=== PATIENT | male | born 1945 | race Caucasian/White ===

== ENCOUNTER 2017-09-03 20:06 | Inpatient (IN) | payer MEDICARE, BC ==
--- NOTE | 2017-09-03 20:33 | EDM.PDOC ---
ED HPI GENERAL MEDICAL PROBLEM - General Chief Complaint: Chest Pain Stated Complaint: CHEST PAIN Time Seen by Provider: 09/03/17 20:15 Source of Information: Reports: Patient, Family History Limitations: Reports: No Limitations - History of Present Illness INITIAL COMMENTS - FREE TEXT/NARRATIVE: Lucero comes into [facility] ED with sxs of R anterior chest pain, characterized as sharp and deep. Pain began early this am and was mild, not associated with palpitations, sweats, SOB, nausea, or lt headiness. Sxs seemed to linger during the day, subsided at dinner time, and then relapsed about 90 minutes ago. Pain is currently an 8/10. He is concerned about PE, having experienced a PE in 2010 after knee surgery. He more recently had podiatric surgery to the R foot on August 16. He has tried no meds. Right Chest Pain Score (Numeric/FACES): 5 - Related Data Allergies Allergy/AdvReac Type Severity Reaction Status Date / Time No Known Allergies Allergy Verified 09/03/17 20:55 Home Meds: Home Meds Aspirin [Adult Low Dose Aspirin EC] 81 mg PO DAILY 12/13/12 [History] Past Medical History Cardiovascular History: Reports: Blood Clots/VTE/DVT Respiratory History: Reports: PE ED ROS GENERAL - Review of Systems Review Of Systems: See Below Constitutional: Reports: Malaise HEENT: Reports: No Symptoms Cardiovascular: Reports: Chest Pain, Palpitations GI/Abdominal: Reports: No Symptoms : Reports: No Symptoms Musculoskeletal: Reports: Foot Pain (R foot recovering from podiatric surgery) Skin: Reports: No Symptoms Neurological: Reports: No Symptoms Psychiatric: Reports: No Symptoms Hematologic/Lymphatic: Reports: No Symptoms Immunologic: Reports: No Symptoms ED EXAM, GENERAL - Physical Exam Exam: See Below Exam Limited By: No Limitations General Appearance: Alert, WD/WN, Anxious, Mild Distress Eye Exam: Bilateral Eye: EOMI, Normal Inspection, PERRL Ears: Normal External Exam Nose: Normal Inspection Throat/Mouth: Normal Inspection, Normal Oropharynx Head: Normocephalic Neck: Normal Inspection, Supple, Non-Tender Respiratory/Chest: No Respiratory Distress, Lungs Clear, No Accessory Muscle Use , Other (limited chest tenderness T 4, 5,6 on R costochondral junction; no swelling) Cardiovascular: Normal Peripheral Pulses, No Edema, No Gallop, No Murmur, Tachycardia GI/Abdominal: Normal Bowel Sounds, Soft, Non-Tender, No Organomegaly, No Distention, No Mass (Male) Exam: Deferred Rectal (Males) Exam: Deferred Back Exam: Normal Inspection Extremities: Normal Inspection Neurological: Alert, Oriented, CN II-XII Intact, Normal Cognition, No Motor/ Sensory Deficits Psychiatric: Normal Affect, Anxious Skin Exam: Warm, Dry, Intact, Normal Color Lymphatic: No Adenopathy Course - Vital Signs Text/Narrative:: Following assessment at the [facility] ED, an 12 lead ekg was reviewed, noting sinus tachycardia; an IV was started in the LUE, and 1L of NS administered with Dilaudid 2 mg IV. A chest angio noted: bilateral PE, more prominent on the R side, with additional findings of ground glass affecting both lower lobes, clinical correlation suggested. The d-dimer 3.79, Troponin I <0.017, CBC and CMP baseline. He will be admitted for medical management. Last Recorded V/S: Last Vital Signs Temp 37.2 C 09/03/17 20:06 Pulse 93 09/03/17 21:16 Resp 22 H 09/03/17 21:16 BP 170/75 H 09/03/17 21:16 Pulse Ox 94 L 09/03/17 21:16 - Orders/Labs/Meds Orders: Active Orders 24 hr Category Date Time Status EKG Documentation Completion [RC] ASDIRECTED Care 09/03/17 20:31 Active Ang Chest [CT] Stat Exams 09/03/17 20:30 Taken Sodium Chloride 0.9% [Normal Saline] 1,000 ml Med 09/03/17 20:45 Active IV ASDIRECTED Sodium Chloride 0.9% [Saline Flush] Med 09/03/17 20:30 Active 10 ml FLUSH ASDIRECTED PRN Peripheral IV Insertion Adult [OM.PC] Routine Oth 09/03/17 20:30 Ordered EKG 12 Lead [EK] Routine Ther 09/03/17 20:30 Ordered Medication Orders Sodium Chloride (Normal Saline) 1,000 mls @ 250 mls/hr IV ASDIRECTED GENEVIEVE Last Admin: 09/03/17 20:49 Dose: 250 mls/hr Sodium Chloride (Saline Flush) 10 ml FLUSH ASDIRECTED PRN PRN Reason: Keep Vein Open Last Admin: 09/03/17 20:49 Dose: 10 ml Admin: 09/03/17 20:35 Dose: 10 ml Labs: Laboratory Tests 09/03/17 09/03/17 09/03/17 Range/Units 20:55 20:55 20:55 WBC 6.9 (4.5-12.0) X10-3/uL RBC 5.00 (4.30-5.75) x10(6)uL Hgb 14.0 (11.5-15.5) g/dL Hct 41.6 (30.0-51.3) % MCV 83.3 (80-96) fL MCH 28.0 (27.7-33.6) pg MCHC 33.6 (32.2-35.4) g/dL RDW 13.4 (11.5-15.5) % Plt Count 213 (125-369) X10(3)uL MPV 6.9 L (7.4-10.4) fL Neut % (Auto) 68.0 (46-82) % Lymph % (Auto) 22.3 (13-37) % [place] % (Auto) 7.4 (4-12) % Eos % (Auto) 2 (1.0-5.0) % Baso % (Auto) 0 (0-2) % Neut # (Auto) 4.8 (1.6-8.3) # Lymph # (Auto) 1.5 (0.6-5.0) # [place] # (Auto) 0.5 (0.0-1.3) # Eos # (Auto) 0.1 (0.0-0.8) # Baso # (Auto) 0.0 (0.0-0.2) # D-Dimer, Quantitative 3.79 H (0.0-0.59) mg/LFEU Sodium 138 (135-145) mmol/L Potassium 3.9 (3.5-5.3) mmol/L Chloride 99 L (100-110) mmol/L Carbon Dioxide 33 H (21-32) mmol/L BUN 19 H (7-18) mg/dL Creatinine 1.3 (0.70-1.30) mg/dL Est Cr Clr Drug Dosing TNP Estimated GFR (MDRD) 54 L (>60) BUN/Creatinine Ratio 14.6 (9-20) Glucose 184 H (80-116) mg/dL Calcium 9.1 (8.6-10.2) mg/dL Total Bilirubin 0.7 (0.1-1.3) mg/dL AST 12 (5-25) IU/L ALT 20 (12-36) U/L Alkaline Phosphatase 76 (56-112) IU/L Troponin I (<0.017-0.056) ng/mL Total Protein 7.3 (6.0-8.0) g/dL Albumin 3.6 (3.2-4.6) g/dL Globulin 3.7 g/dL Albumin/Globulin Ratio 1.0 / Range/Units 20:55 WBC (4.5-12.0) X10-3/uL RBC (4.30-5.75) x10(6)uL Hgb (11.5-15.5) g/dL Hct (30.0-51.3) % MCV (80-96) fL MCH (27.7-33.6) pg MCHC (32.2-35.4) g/dL RDW (11.5-15.5) % Plt Count (125-369) X10(3)uL MPV (7.4-10.4) fL Neut % (Auto) (46-82) % Lymph % (Auto) (13-37) % [place] % (Auto) (4-12) % Eos % (Auto) (1.0-5.0) % Baso % (Auto) (0-2) % Neut # (Auto) (1.6-8.3) # Lymph # (Auto) (0.6-5.0) # [place] # (Auto) (0.0-1.3) # Eos # (Auto) (0.0-0.8) # Baso # (Auto) (0.0-0.2) # D-Dimer, Quantitative (0.0-0.59) mg/LFEU Sodium (135-145) mmol/L Potassium (3.5-5.3) mmol/L Chloride (100-110) mmol/L Carbon Dioxide (21-32) mmol/L BUN (7-18) mg/dL Creatinine (0.70-1.30) mg/dL Est Cr Clr Drug Dosing Estimated GFR (MDRD) (>60) BUN/Creatinine Ratio (9-20) Glucose (80-116) mg/dL Calcium (8.6-10.2) mg/dL Total Bilirubin (0.1-1.3) mg/dL AST (5-25) IU/L ALT (12-36) U/L Alkaline Phosphatase (56-112) IU/L Troponin I < 0.017 L (<0.017-0.056) ng/mL Total Protein (6.0-8.0) g/dL Albumin (3.2-4.6) g/dL Globulin g/dL Albumin/Globulin Ratio Meds: Medications Generic Name Dose Route Start Last Admin Trade Name Freq PRN Reason Stop Dose Admin Sodium Chloride 1,000 mls @ 250 mls/hr 09/03/17 20:45 09/03/17 20:49 Normal Saline IV 250 mls/hr ASDIRECTED GENEVIEVE Administration Sodium Chloride 10 ml 09/03/17 20:30 09/03/17 20:49 Saline Flush FLUSH 10 ml ASDIRECTED PRN Administration Keep Vein Open Discontinued Medications Generic Name Dose Route Start Last Admin Trade Name Freq PRN Reason Stop Dose Admin Hydromorphone HCl 2 mg 09/03/17 21:16 09/03/17 21:23 Dilaudid IVPUSH 09/03/17 21:17 2 mg ONETIME ONE Administration Iopamidol 100 ml 09/03/17 21:19 09/03/17 21:34 Isovue-370 (76%) IV 09/03/17 21:20 100 ml . DIRECTED ONE Administration Departure - Departure Time of Disposition: 22:21 Disposition: Admitted As Inpatient 66 Condition: Fair Clinical Impression: Pulmonary embolism Qualifiers: Pulmonary embolism type: other Chronicity: acute Acute cor pulmonale presence: without acute cor pulmonale Qualified Code(s): I26.99 - Other pulmonary embolism without acute cor pulmonale Referrals: Raul Hwang MD [Primary Care Provider] - Forms: ED Department Discharge - Problem List & Annotations (1) Pulmonary embolism SNOMED Code(s): 30089367 Code(s): I26.99 - OTHER PULMONARY EMBOLISM WITHOUT ACUTE COR PULMONALE Status: Acute Current Visit: Yes Annotation/Comment:: Admit for anticoagulant therapy and medical managment. Qualifiers: Pulmonary embolism type: other Chronicity: acute Acute cor pulmonale presence: without acute cor pulmonale Qualified Code(s): I26.99 - Other pulmonary embolism without acute cor pulmonale - Problem List Review Problem List Initiated/Reviewed/Updated: Yes - My Orders Last 24 Hours: My Active Orders 09/03/17 20:30 Ang Chest [CT] Stat Sodium Chloride 0.9% [Saline Flush] 10 ml FLUSH ASDIRECTED PRN Peripheral IV Insertion Adult [OM.PC] Routine EKG 12 Lead [EK] Routine 09/03/17 20:31 EKG Documentation Completion [RC] ASDIRECTED 09/03/17 20:45 Sodium Chloride 0.9% [Normal Saline] 1,000 ml IV ASDIRECTED - Assessment/Plan Last 24 Hours: My Active Orders 09/03/17 20:30 Ang Chest [CT] Stat Sodium Chloride 0.9% [Saline Flush] 10 ml FLUSH ASDIRECTED PRN Peripheral IV Insertion Adult [OM.PC] Routine EKG 12 Lead [EK] Routine 09/03/17 20:31 EKG Documentation Completion [RC] ASDIRECTED 09/03/17 20:45 Sodium Chloride 0.9% [Normal Saline] 1,000 ml IV ASDIRECTED Plan: Hospitalist to see in the am.
[2017-09-03] MEDS: Sodium Chloride 0.9% 10 ML Syringe FLUSH PRN ×2 (20:35→20:49)
[2017-09-03] MEDS: Sodium Chloride 0.9% 1,000 ML IV SCH (20:49)
[2017-09-03] MEDS ORDERED: HYDROmorphone 2 MG/ML SDV IVPUSH ONE (21:16)
[2017-09-03] MEDS ORDERED: Iopamidol 755 Mg/ML 100 ML Bottle IV ONE (21:19)
[2017-09-03] MEDS ORDERED: Heparin Sodium 5,000 Units/ML Vial IVPUSH ONE (22:32)
[2017-09-03] MEDS ORDERED: Heparin Sodium/0.45% NaCl 25,000 UNITS/500 ML BAG IV SCH ×2 (23:15→23:45)
[2017-09-03] MEDS: Heparin Sodium/0.45% NaCl 500 ML IV SCH (23:40)
[2017-09-04] MEDS: Sodium Chloride 0.9% 1,000 ML IV SCH ×2 (00:52→04:46)
[2017-09-04] MEDS: Acetaminophen/HYDROcodone 325-5 MG Tab PO PRN ×3 (06:45→18:49)
[2017-09-04] MEDS ORDERED: Heparin Sodium 5,000 Units/ML Vial IVPUSH ONE (08:17)
[2017-09-04] MEDS ORDERED: Warfarin 10 MG Tab PO ONE ×2 (08:42→10:00)
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
[2017-09-04] MEDS: Heparin Sodium/0.45% NaCl 500 ML IV SCH (22:04)
[2017-09-05] MEDS: Acetaminophen/HYDROcodone 325-5 MG Tab PO PRN ×3 (02:33→19:34)
--- NOTE | 2017-09-05 08:34 | PCM.PN ---
- General Info Date of Service: 09/05/17 Functional Status: Reports: Pain Controlled, Tolerating Diet - Review of Systems General: Reports: No Symptoms HEENT: Reports: No Symptoms Pulmonary: Reports: Shortness of Breath, Pleuritic Chest Pain Cardiovascular: Reports: No Symptoms Gastrointestinal: Reports: No Symptoms - Patient Data Vitals - Most Recent: Last Vital Signs Temp 98.7 F 09/05/17 04:00 Pulse 72 09/05/17 04:00 Resp 16 09/05/17 04:00 BP 121/55 L 09/05/17 04:00 Pulse Ox 95 09/05/17 04:00 Weight - Most Recent: 86.682 kg I&O - Last 24 Hours: Intake & Output 09/04/17 09/05/17 09/05/17 22:59 06:59 14:59 Intake Total 767 389 Output Total 780 675 Balance -13 -286 Lab Results Last 24 Hours: Laboratory Results - last 24 hr 09/04/17 09/04/17 09/05/17 Range/Units 14:03 20:10 06:10 WBC 5.8 (4.5-12.0) X10-3/uL RBC 4.52 (4.30-5.75) x10(6)uL Hgb 13.3 (11.5-15.5) g/dL Hct 38.0 (30.0-51.3) % MCV 84.1 (80-96) fL MCH 29.5 (27.7-33.6) pg MCHC 35.1 (32.2-35.4) g/dL RDW 13.7 (11.5-15.5) % Plt Count 165 (125-369) X10(3)uL MPV 7.9 (7.4-10.4) fL Neut % (Auto) 59.1 (46-82) % Lymph % (Auto) 28.5 (13-37) % [place] % (Auto) 9.9 (4-12) % Eos % (Auto) 2 (1.0-5.0) % Baso % (Auto) 1 (0-2) % Neut # (Auto) 3.5 (1.6-8.3) # Lymph # (Auto) 1.6 (0.6-5.0) # [place] # (Auto) 0.6 (0.0-1.3) # Eos # (Auto) 0.1 (0.0-0.8) # Baso # (Auto) 0.0 (0.0-0.2) # PT (8.7-11.1) INR (0.89-1.13) APTT 53.8 H 61.1 H* (24.4-33.2) SECONDS Sodium (135-145) mmol/L Potassium (3.5-5.3) mmol/L Chloride (100-110) mmol/L Carbon Dioxide (21-32) mmol/L BUN (7-18) mg/dL Creatinine (0.70-1.30) mg/dL Est Cr Clr Drug Dosing mL/min Estimated GFR (MDRD) (>60) BUN/Creatinine Ratio (9-20) Glucose (80-116) mg/dL Calcium (8.6-10.2) mg/dL Total Bilirubin (0.1-1.3) mg/dL AST (5-25) IU/L ALT (12-36) U/L Alkaline Phosphatase (56-112) IU/L Total Protein (6.0-8.0) g/dL Albumin (3.2-4.6) g/dL Globulin g/dL Albumin/Globulin Ratio 09/05/17 09/05/17 09/05/17 Range/Units 06:10 06:10 06:10 WBC (4.5-12.0) X10-3/uL RBC (4.30-5.75) x10(6)uL Hgb (11.5-15.5) g/dL Hct (30.0-51.3) % MCV (80-96) fL MCH (27.7-33.6) pg MCHC (32.2-35.4) g/dL RDW (11.5-15.5) % Plt Count (125-369) X10(3)uL MPV (7.4-10.4) fL Neut % (Auto) (46-82) % Lymph % (Auto) (13-37) % [place] % (Auto) (4-12) % Eos % (Auto) (1.0-5.0) % Baso % (Auto) (0-2) % Neut # (Auto) (1.6-8.3) # Lymph # (Auto) (0.6-5.0) # [place] # (Auto) (0.0-1.3) # Eos # (Auto) (0.0-0.8) # Baso # (Auto) (0.0-0.2) # PT 15.5 H (8.7-11.1) INR 1.61 H (0.89-1.13) APTT 67.6 H* (24.4-33.2) SECONDS Sodium 137 (135-145) mmol/L Potassium 4.2 (3.5-5.3) mmol/L Chloride 102 (100-110) mmol/L Carbon Dioxide 31 (21-32) mmol/L BUN 12 (7-18) mg/dL Creatinine 1.2 (0.70-1.30) mg/dL Est Cr Clr Drug Dosing 56.46 mL/min Estimated GFR (MDRD) 60 (>60) BUN/Creatinine Ratio 10.0 (9-20) Glucose 102 D (80-116) mg/dL Calcium 8.5 L (8.6-10.2) mg/dL Total Bilirubin 0.5 (0.1-1.3) mg/dL AST 11 (5-25) IU/L ALT 17 D (12-36) U/L Alkaline Phosphatase 63 (56-112) IU/L Total Protein 6.6 (6.0-8.0) g/dL Albumin 2.9 L (3.2-4.6) g/dL Globulin 3.7 g/dL Albumin/Globulin Ratio 0.8 Med Orders - Current: Current Medications Hydrocodone Bitart/Acetaminophen ([place] 325-5 Mg) 1 tab PO Q4H PRN PRN Reason: Pain (moderate 4-6) Last Admin: 09/05/17 07:24 Dose: 1 tab Heparin Sodium/Sodium Chloride (Heparin 25,000 Units In 1/2 Ns 500 Ml) 500 mls @ 20 mls/hr IV ASDIRECTED COUNT INCLUDES THE [facility] Last Admin: 09/04/17 22:04 Dose: 23.4 mls/hr Warfarin Sodium (Coumadin) 5 mg PO ONETIME ONE Stop: 09/05/17 16:01 Discontinued Medications Heparin Sodium (Porcine) (Heparin Sodium) 5,000 units IVPUSH ONETIME ONE Stop: 09/03/17 22:33 Last Admin: 09/03/17 22:50 Dose: 5,000 units Heparin Sodium (Porcine) (Heparin Sodium) 1,500 units IVPUSH .BOLUS ONE Stop: 09/04/17 08:18 Last Admin: 09/04/17 09:43 Dose: 1,500 units Hydromorphone HCl (Dilaudid) 2 mg IVPUSH ONETIME ONE Stop: 09/03/17 21:17 Last Admin: 09/03/17 21:23 Dose: 2 mg Sodium Chloride (Normal Saline) 1,000 mls @ 125 mls/hr IV ASDIRECTED GENEVIEVE Last Admin: 09/04/17 04:46 Dose: 250 mls/hr Heparin Sodium/Sodium Chloride (Heparin 25,000 Units In 1/2 Ns 500 Ml) 25,000 units in 500 mls @ 20 mls/hr IV TITRATE GENEVIEVE; Protocol Heparin Sodium/Sodium Chloride (Heparin 25,000 Units In 1/2 Ns 500 Ml) 25,000 units in 500 mls @ 20 mls/hr IV TITRATE GENEVIEVE; Protocol Stop: 09/04/17 00:05 Iopamidol (Isovue-370 (76%)) 100 ml IV . DIRECTED ONE Stop: 09/03/17 21:20 Last Admin: 09/03/17 21:34 Dose: 100 ml Sodium Chloride (Saline Flush) 10 ml FLUSH ASDIRECTED PRN PRN Reason: Keep Vein Open Last Admin: 09/03/17 20:49 Dose: 10 ml Warfarin Sodium (Coumadin) 10 mg PO ONETIME ONE Stop: 09/04/17 08:43 Last Admin: 09/04/17 09:50 Dose: Not Given Warfarin Sodium (Coumadin) 10 mg PO ONETIME ONE Stop: 09/04/17 10:01 Last Admin: 09/04/17 09:50 Dose: 10 mg - Exam Quality Assessment: Supplemental Oxygen General: Alert HEENT: Pupils Equal Neck: Supple Lungs: Clear to Auscultation - Problem List & Annotations (1) Pulmonary embolism SNOMED Code(s): 62847461 Code(s): I26.99 - OTHER PULMONARY EMBOLISM WITHOUT ACUTE COR PULMONALE Status: Acute Current Visit: Yes Qualifiers: Pulmonary embolism type: other Chronicity: acute Acute cor pulmonale presence: without acute cor pulmonale Qualified Code(s): I26.99 - Other pulmonary embolism without acute cor pulmonale Annotation/Comment:: Admit for anticoagulant therapy and medical managment. (2) Pulmonary nodule SNOMED Code(s): 065442612 Code(s): R91.1 - SOLITARY PULMONARY NODULE Status: Acute Current Visit: Yes (3) Tobacco abuse SNOMED Code(s): 779084753 Code(s): Z72.0 - TOBACCO USE Status: Acute Current Visit: Yes - Problem List Review Problem List Initiated/Reviewed/Updated: Yes - My Orders Last 24 Hours: My Active Orders 09/04/17 10:21 IS (RT) [RT Incentive Spirometry] [RC] ASDIRECTED 09/04/17 Lunch Regular Diet [DIET] 09/05/17 16:00 Warfarin [Coumadin] 5 mg PO ONETIME ONE 09/06/17 05:11 INR,PT,PROTHROMBIN TIME [COAG] DAILY 09/07/17 05:11 INR,PT,PROTHROMBIN TIME [COAG] DAILY 09/08/17 05:11 INR,PT,PROTHROMBIN TIME [COAG] DAILY 09/09/17 05:11 INR,PT,PROTHROMBIN TIME [COAG] DAILY - Plan Plan:: Heparin drip, continue Coumadin ,today INR is 1.6,repeat tmrow
[2017-09-05] MEDS ORDERED: Warfarin Sliding Scale PO SCH (10:00)
[2017-09-05] MEDS ORDERED: Warfarin 5 MG Tab PO ONE (16:00)
[2017-09-05] MEDS: Heparin Sodium/0.45% NaCl 25,000 UNITS/500 ML BAG IV SCH (19:35)
[2017-09-05] MEDS: Levofloxacin/Dextrose 5%-Water 750 MG in Premix Bag 1 BAG IV SCH (21:42)
--- NOTE | 2017-09-06 09:46 | PCM.PN ---
- General Info Date of Service: 09/06/17 Subjective Update: Lucero developed a fever yesterday and a chest x-ray done at that time showed bilateral opacities with pleural effusion. He has a mild cough this morning still short of breath but denies any more fever. He still has chest pain when he breathes. Functional Status: Reports: Pain Controlled - Review of Systems Pulmonary: Reports: Shortness of Breath, Pleuritic Chest Pain Cardiovascular: Reports: No Symptoms Gastrointestinal: Reports: No Symptoms - Patient Data Vitals - Most Recent: Last Vital Signs Temp 98.6 F 09/06/17 04:00 Pulse 85 09/06/17 04:00 Resp 20 09/06/17 04:00 BP 112/71 09/06/17 04:00 Pulse Ox 96 09/06/17 04:00 Weight - Most Recent: 87.317 kg I&O - Last 24 Hours: Intake & Output 09/05/17 09/06/17 09/06/17 22:59 06:59 14:59 Intake Total 635 279 100 Output Total 625 850 Balance 10 -571 100 Lab Results Last 24 Hours: Laboratory Results - last 24 hr 09/06/17 Range/Units 06:30 PT 32.0 H (8.7-11.1) INR 3.34 H (0.89-1.13) APTT 90.3 H* (24.4-33.2) SECONDS Med Orders - Current: Current Medications Hydrocodone Bitart/Acetaminophen ([place] 325-5 Mg) 1 tab PO Q4H PRN PRN Reason: Pain (moderate 4-6) Last Admin: 09/05/17 19:34 Dose: 1 tab Heparin Sodium/Sodium Chloride (Heparin 25,000 Units In 1/2 Ns 500 Ml) 25,000 units in 500 mls @ 23.404 mls/hr IV TITRATE GENEVIEVE; Protocol Last Titration: 09/06/17 09:00 Dose: 10.5 units/kg/hr, 18.203 mls/hr Levofloxacin/Dextrose 750 mg/ (Premix) 150 mls @ 100 mls/hr IV Q24H GENEVIEVE Last Admin: 09/05/17 21:42 Dose: 100 mls/hr Warfarin Sodium (Coumadin Sliding Scale) 1 each PO ASDIRECTED GENEVIEVE Discontinued Medications Heparin Sodium (Porcine) (Heparin Sodium) 5,000 units IVPUSH ONETIME ONE Stop: 09/03/17 22:33 Last Admin: 09/03/17 22:50 Dose: 5,000 units Heparin Sodium (Porcine) (Heparin Sodium) 1,500 units IVPUSH .BOLUS ONE Stop: 09/04/17 08:18 Last Admin: 09/04/17 09:43 Dose: 1,500 units Hydromorphone HCl (Dilaudid) 2 mg IVPUSH ONETIME ONE Stop: 09/03/17 21:17 Last Admin: 09/03/17 21:23 Dose: 2 mg Sodium Chloride (Normal Saline) 1,000 mls @ 125 mls/hr IV ASDIRECTED GENEVIEVE Last Admin: 09/04/17 04:46 Dose: 250 mls/hr Heparin Sodium/Sodium Chloride (Heparin 25,000 Units In 1/2 Ns 500 Ml) 25,000 units in 500 mls @ 20 mls/hr IV TITRATE GENEVIEVE; Protocol Heparin Sodium/Sodium Chloride (Heparin 25,000 Units In 1/2 Ns 500 Ml) 25,000 units in 500 mls @ 20 mls/hr IV TITRATE GENEVIEVE; Protocol Stop: 09/04/17 00:05 Heparin Sodium/Sodium Chloride (Heparin 25,000 Units In 1/2 Ns 500 Ml) 500 mls @ 20 mls/hr IV ASDIRECTED GENEVIEVE Last Admin: 09/04/17 22:04 Dose: 23.4 mls/hr Iopamidol (Isovue-370 (76%)) 100 ml IV . DIRECTED ONE Stop: 09/03/17 21:20 Last Admin: 09/03/17 21:34 Dose: 100 ml Sodium Chloride (Saline Flush) 10 ml FLUSH ASDIRECTED PRN PRN Reason: Keep Vein Open Last Admin: 09/03/17 20:49 Dose: 10 ml Warfarin Sodium (Coumadin) 10 mg PO ONETIME ONE Stop: 09/04/17 08:43 Last Admin: 09/04/17 09:50 Dose: Not Given Warfarin Sodium (Coumadin) 10 mg PO ONETIME ONE Stop: 09/04/17 10:01 Last Admin: 09/04/17 09:50 Dose: 10 mg Warfarin Sodium (Coumadin) 5 mg PO ONETIME ONE Stop: 09/05/17 16:01 Last Admin: 09/05/17 16:09 Dose: 5 mg - Exam Quality Assessment: Supplemental Oxygen General: Alert, Oriented HEENT: Pupils Equal Neck: Supple Lungs: Decreased Breath Sounds, Rales Cardiovascular: Regular Rate - Problem List & Annotations (1) Pulmonary embolism SNOMED Code(s): 39435245 Code(s): I26.99 - OTHER PULMONARY EMBOLISM WITHOUT ACUTE COR PULMONALE Status: Acute Current Visit: Yes Qualifiers: Pulmonary embolism type: other Chronicity: acute Acute cor pulmonale presence: without acute cor pulmonale Qualified Code(s): I26.99 - Other pulmonary embolism without acute cor pulmonale Annotation/Comment:: Admit for anticoagulant therapy and medical managment. (2) Pulmonary nodule SNOMED Code(s): 381158773 Code(s): R91.1 - SOLITARY PULMONARY NODULE Status: Acute Current Visit: Yes (3) Tobacco abuse SNOMED Code(s): 933337298 Code(s): Z72.0 - TOBACCO USE Status: Acute Current Visit: Yes (4) Pneumonia SNOMED Code(s): 527261989 Code(s): J18.9 - PNEUMONIA, UNSPECIFIED ORGANISM Status: Acute Current Visit: Yes Qualifiers: Lung location: unspecified part of lung (5) Pleural effusion SNOMED Code(s): 58470677 Code(s): J90 - PLEURAL EFFUSION, NOT ELSEWHERE CLASSIFIED Status: Acute Current Visit: Yes - Problem List Review Problem List Initiated/Reviewed/Updated: Yes - My Orders Last 24 Hours: My Active Orders 09/05/17 10:00 Heparin Sodium/0.45% NaCl [Heparin 25,000 Units in 1/2 NS 500 ML] 25,000 units in 500 ml IV TITRATE Warfarin Sliding Scale [Coumadin Sliding Scale] 1 each PO ASDIRECTED 09/05/17 18:56 CXR [Chest 2V] [CR] Routine 09/05/17 21:00 Levofloxacin/Dextrose 5%-Water [Levaquin in D5W 750 MG/150 ML] 750 mg Premix Bag 1 bag IV Q24H 09/06/17 15:00 PTT,PARTIAL THROMBOPLSTIN TIME [COAG] Routine 09/07/17 05:11 CBC WITH AUTO DIFF [HEME] AM COMPREHENSIVE METABOLIC PN,CMP [CHEM] AM INR,PT,PROTHROMBIN TIME [COAG] DAILY LACTATE DEHYDROGENASE,LDH [CHEM] AM PRO B-TYPE NATRIUR PEPT,BNPPRO [CHEM] DAILY 07/26/18 05:11 INR,PT,PROTHROMBIN TIME [COAG] DAILY 09/09/17 05:11 INR,PT,PROTHROMBIN TIME [COAG] DAILY - Plan Plan:: Heparin drip, continue Coumadin ,today INR is over 3 today. Continue Levaquin 750 mg IV,and a total of 5 days of Heparin
[2017-09-06] MEDS: Levofloxacin/Dextrose 5%-Water 750 MG in Premix Bag 1 BAG IV SCH (20:20)
[2017-09-06] MEDS: Heparin Sodium/0.45% NaCl 25,000 UNITS/500 ML BAG IV SCH (21:53)
--- NOTE | 2017-09-07 08:27 | PCM.PN ---
- General Info Date of Service: 09/07/17 Subjective Update: Lucero is doeing well. Functional Status: Reports: Pain Controlled, Tolerating Diet - Review of Systems Genitourinary: Reports: No Symptoms Musculoskeletal: Reports: No Symptoms - Patient Data Vitals - Most Recent: Last Vital Signs Temp 98.5 F 09/07/17 04:00 Pulse 84 09/07/17 04:00 Resp 16 09/07/17 04:00 BP 138/70 09/07/17 04:00 Pulse Ox 93 L 09/07/17 04:00 Weight - Most Recent: 87.317 kg I&O - Last 24 Hours: Intake & Output 09/06/17 09/07/17 09/07/17 22:59 06:59 14:59 Intake Total 774 447 Output Total 500 Balance 774 -53 Lab Results Last 24 Hours: Laboratory Results - last 24 hr 09/06/17 09/06/17 09/07/17 Range/Units 15:00 21:00 06:10 WBC (4.5-12.0) X10-3/uL RBC (4.30-5.75) x10(6)uL Hgb (11.5-15.5) g/dL Hct (30.0-51.3) % MCV (80-96) fL MCH (27.7-33.6) pg MCHC (32.2-35.4) g/dL RDW (11.5-15.5) % Plt Count (125-369) X10(3)uL MPV (7.4-10.4) fL Neut % (Auto) (46-82) % Lymph % (Auto) (13-37) % [place] % (Auto) (4-12) % Eos % (Auto) (1.0-5.0) % Baso % (Auto) (0-2) % Neut # (Auto) (1.6-8.3) # Lymph # (Auto) (0.6-5.0) # [place] # (Auto) (0.0-1.3) # Eos # (Auto) (0.0-0.8) # Baso # (Auto) (0.0-0.2) # PT 29.8 H (8.7-11.1) INR 3.10 H (0.89-1.13) APTT 62.4 H* 60.1 H* (24.4-33.2) SECONDS Sodium (135-145) mmol/L Potassium (3.5-5.3) mmol/L Chloride (100-110) mmol/L Carbon Dioxide (21-32) mmol/L BUN (7-18) mg/dL Creatinine (0.70-1.30) mg/dL Est Cr Clr Drug Dosing mL/min Estimated GFR (MDRD) (>60) BUN/Creatinine Ratio (9-20) Glucose (80-116) mg/dL Calcium (8.6-10.2) mg/dL Total Bilirubin (0.1-1.3) mg/dL AST (5-25) IU/L ALT (12-36) U/L Alkaline Phosphatase (56-112) IU/L Lactate Dehydrogenase (85-227) U/L NT-Pro-B Natriuret Pep (<=125) pg/mL Total Protein (6.0-8.0) g/dL Albumin (3.2-4.6) g/dL Globulin g/dL Albumin/Globulin Ratio 09/07/17 09/07/17 09/07/17 Range/Units 06:10 06:10 06:10 WBC 5.4 (4.5-12.0) X10-3/uL RBC 4.96 (4.30-5.75) x10(6)uL Hgb 13.8 (11.5-15.5) g/dL Hct 41.4 (30.0-51.3) % MCV 83.5 (80-96) fL MCH 27.8 (27.7-33.6) pg MCHC 33.3 (32.2-35.4) g/dL RDW 13.4 (11.5-15.5) % Plt Count 207 (125-369) X10(3)uL MPV 7.5 (7.4-10.4) fL Neut % (Auto) 59.9 (46-82) % Lymph % (Auto) 27.1 (13-37) % [place] % (Auto) 10.6 (4-12) % Eos % (Auto) 2 (1.0-5.0) % Baso % (Auto) 0 (0-2) % Neut # (Auto) 3.2 (1.6-8.3) # Lymph # (Auto) 1.5 (0.6-5.0) # [place] # (Auto) 0.6 (0.0-1.3) # Eos # (Auto) 0.1 (0.0-0.8) # Baso # (Auto) 0.0 (0.0-0.2) # PT (8.7-11.1) INR (0.89-1.13) APTT (24.4-33.2) SECONDS Sodium 137 (135-145) mmol/L Potassium 3.8 (3.5-5.3) mmol/L Chloride 102 (100-110) mmol/L Carbon Dioxide 29 (21-32) mmol/L BUN 16 (7-18) mg/dL Creatinine 1.2 (0.70-1.30) mg/dL Est Cr Clr Drug Dosing 56.46 mL/min Estimated GFR (MDRD) 60 (>60) BUN/Creatinine Ratio 13.3 (9-20) Glucose 108 (80-116) mg/dL Calcium 8.9 (8.6-10.2) mg/dL Total Bilirubin 0.5 (0.1-1.3) mg/dL AST 14 D (5-25) IU/L ALT 18 (12-36) U/L Alkaline Phosphatase 67 (56-112) IU/L Lactate Dehydrogenase 65 L (85-227) U/L NT-Pro-B Natriuret Pep 472 H (<=125) pg/mL Total Protein 7.1 (6.0-8.0) g/dL Albumin 2.9 L (3.2-4.6) g/dL Globulin 4.2 g/dL Albumin/Globulin Ratio 0.7 /25/18 Range/Units 06:10 WBC (4.5-12.0) X10-3/uL RBC (4.30-5.75) x10(6)uL Hgb (11.5-15.5) g/dL Hct (30.0-51.3) % MCV (80-96) fL MCH (27.7-33.6) pg MCHC (32.2-35.4) g/dL RDW (11.5-15.5) % Plt Count (125-369) X10(3)uL MPV (7.4-10.4) fL Neut % (Auto) (46-82) % Lymph % (Auto) (13-37) % [place] % (Auto) (4-12) % Eos % (Auto) (1.0-5.0) % Baso % (Auto) (0-2) % Neut # (Auto) (1.6-8.3) # Lymph # (Auto) (0.6-5.0) # [place] # (Auto) (0.0-1.3) # Eos # (Auto) (0.0-0.8) # Baso # (Auto) (0.0-0.2) # PT (8.7-11.1) INR (0.89-1.13) APTT 69.7 H* (24.4-33.2) SECONDS Sodium (135-145) mmol/L Potassium (3.5-5.3) mmol/L Chloride (100-110) mmol/L Carbon Dioxide (21-32) mmol/L BUN (7-18) mg/dL Creatinine (0.70-1.30) mg/dL Est Cr Clr Drug Dosing mL/min Estimated GFR (MDRD) (>60) BUN/Creatinine Ratio (9-20) Glucose (80-116) mg/dL Calcium (8.6-10.2) mg/dL Total Bilirubin (0.1-1.3) mg/dL AST (5-25) IU/L ALT (12-36) U/L Alkaline Phosphatase (56-112) IU/L Lactate Dehydrogenase (85-227) U/L NT-Pro-B Natriuret Pep (<=125) pg/mL Total Protein (6.0-8.0) g/dL Albumin (3.2-4.6) g/dL Globulin g/dL Albumin/Globulin Ratio Med Orders - Current: Current Medications Hydrocodone Bitart/Acetaminophen ([place] 325-5 Mg) 1 tab PO Q4H PRN PRN Reason: Pain (moderate 4-6) Last Admin: 09/05/17 19:34 Dose: 1 tab Heparin Sodium/Sodium Chloride (Heparin 25,000 Units In 1/2 Ns 500 Ml) 25,000 units in 500 mls @ 23.404 mls/hr IV TITRATE GENEVIEVE; Protocol Stop: 09/08/17 23:00 Last Admin: 09/06/17 21:53 Dose: 10.5 units/kg/hr, 18.203 mls/hr Levofloxacin/Dextrose 750 mg/ (Premix) 150 mls @ 100 mls/hr IV Q24H GENEVIEVE Last Admin: 09/06/17 20:20 Dose: 100 mls/hr Warfarin Sodium (Coumadin Sliding Scale) 1 each PO ASDIRECTED GENEVIEVE Warfarin Sodium (Coumadin) 2.5 mg PO 1600 GENEVIEVE Stop: 09/07/17 16:01 Discontinued Medications Heparin Sodium (Porcine) (Heparin Sodium) 5,000 units IVPUSH ONETIME ONE Stop: 09/03/17 22:33 Last Admin: 09/03/17 22:50 Dose: 5,000 units Heparin Sodium (Porcine) (Heparin Sodium) 1,500 units IVPUSH .BOLUS ONE Stop: 09/04/17 08:18 Last Admin: 09/04/17 09:43 Dose: 1,500 units Hydromorphone HCl (Dilaudid) 2 mg IVPUSH ONETIME ONE Stop: 09/03/17 21:17 Last Admin: 09/03/17 21:23 Dose: 2 mg Sodium Chloride (Normal Saline) 1,000 mls @ 125 mls/hr IV ASDIRECTED GENEVIEVE Last Admin: 09/04/17 04:46 Dose: 250 mls/hr Heparin Sodium/Sodium Chloride (Heparin 25,000 Units In 1/2 Ns 500 Ml) 25,000 units in 500 mls @ 20 mls/hr IV TITRATE GENEVIEVE; Protocol Heparin Sodium/Sodium Chloride (Heparin 25,000 Units In 1/2 Ns 500 Ml) 25,000 units in 500 mls @ 20 mls/hr IV TITRATE GENEVIEVE; Protocol Stop: 09/04/17 00:05 Heparin Sodium/Sodium Chloride (Heparin 25,000 Units In 1/2 Ns 500 Ml) 500 mls @ 20 mls/hr IV ASDIRECTED GENEVIEVE Last Admin: 09/04/17 22:04 Dose: 23.4 mls/hr Iopamidol (Isovue-370 (76%)) 100 ml IV . DIRECTED ONE Stop: 09/03/17 21:20 Last Admin: 09/03/17 21:34 Dose: 100 ml Sodium Chloride (Saline Flush) 10 ml FLUSH ASDIRECTED PRN PRN Reason: Keep Vein Open Last Admin: 09/03/17 20:49 Dose: 10 ml Warfarin Sodium (Coumadin) 10 mg PO ONETIME ONE Stop: 09/04/17 08:43 Last Admin: 09/04/17 09:50 Dose: Not Given Warfarin Sodium (Coumadin) 10 mg PO ONETIME ONE Stop: 09/04/17 10:01 Last Admin: 09/04/17 09:50 Dose: 10 mg Warfarin Sodium (Coumadin) 5 mg PO ONETIME ONE Stop: 09/05/17 16:01 Last Admin: 09/05/17 16:09 Dose: 5 mg - Exam General: Alert, Oriented HEENT: Pupils Equal Lungs: Clear to Auscultation, Decreased Breath Sounds, Rales Cardiovascular: Regular Rate GI/Abdominal Exam: Normal Bowel Sounds - Problem List & Annotations (1) Pulmonary embolism SNOMED Code(s): 44829793 Code(s): I26.99 - OTHER PULMONARY EMBOLISM WITHOUT ACUTE COR PULMONALE Status: Acute Current Visit: Yes Qualifiers: Pulmonary embolism type: other Chronicity: acute Acute cor pulmonale presence: without acute cor pulmonale Qualified Code(s): I26.99 - Other pulmonary embolism without acute cor pulmonale Annotation/Comment:: Admit for anticoagulant therapy and medical managment. (2) Pulmonary nodule SNOMED Code(s): 913313256 Code(s): R91.1 - SOLITARY PULMONARY NODULE Status: Acute Current Visit: Yes (3) Tobacco abuse SNOMED Code(s): 836108828 Code(s): Z72.0 - TOBACCO USE Status: Acute Current Visit: Yes (4) Pneumonia SNOMED Code(s): 315207093 Code(s): J18.9 - PNEUMONIA, UNSPECIFIED ORGANISM Status: Acute Current Visit: Yes Qualifiers: Lung location: unspecified part of lung (5) Pleural effusion SNOMED Code(s): 17694308 Code(s): J90 - PLEURAL EFFUSION, NOT ELSEWHERE CLASSIFIED Status: Acute Current Visit: Yes - Problem List Review Problem List Initiated/Reviewed/Updated: Yes - My Orders Last 24 Hours: My Active Orders 09/07/17 16:00 Warfarin [Coumadin] 2.5 mg PO 1600 09/08/17 05:11 INR,PT,PROTHROMBIN TIME [COAG] DAILY 09/09/17 05:11 INR,PT,PROTHROMBIN TIME [COAG] DAILY - Plan Plan:: Heparin drip, continue Coumadin ,today INR is over 3 today. Continue Levaquin 750 mg IV,and a total of 5 days of Heparin,sotomorrow will be the day of discharge.Transfer out of ICU
[2017-09-07] MEDS ORDERED: Warfarin 2.5 MG Tab PO SCH (16:00)
[2017-09-07] MEDS: Levofloxacin/Dextrose 5%-Water 750 MG in Premix Bag 1 BAG IV SCH (20:11)
[2017-09-08] MEDS: Heparin Sodium/0.45% NaCl 25,000 UNITS/500 ML BAG IV SCH (02:17)
--- NOTE | 2017-09-08 08:49 | PCM.PN ---
- General Info Date of Service: 09/08/17 Subjective Update: Lucero is doeing well. Functional Status: Reports: Pain Controlled, Tolerating Diet - Review of Systems General: Reports: No Symptoms HEENT: Reports: No Symptoms Pulmonary: Reports: No Symptoms Cardiovascular: Reports: No Symptoms Gastrointestinal: Reports: No Symptoms Genitourinary: Reports: No Symptoms Musculoskeletal: Reports: No Symptoms Skin: Reports: No Symptoms Neurological: Reports: No Symptoms Psychiatric: Reports: No Symptoms - Patient Data Vitals - Most Recent: Last Vital Signs Temp 99.1 F 09/08/17 04:00 Pulse 73 09/08/17 04:00 Resp 17 09/08/17 04:00 BP 109/63 09/08/17 04:00 Pulse Ox 93 L 09/08/17 04:00 Weight - Most Recent: 87.317 kg I&O - Last 24 Hours: Intake & Output 09/07/17 09/08/17 09/08/17 22:59 06:59 14:59 Intake Total 400 567 Output Total 100 350 Balance 300 217 Lab Results Last 24 Hours: Laboratory Results - last 24 hr 09/07/17 09/08/17 09/08/17 Range/Units 21:00 02:05 02:05 PT 33.5 H (8.7-11.1) INR 3.49 H (0.89-1.13) APTT 80.1 H* 65.3 H* (24.4-33.2) SECONDS Med Orders - Current: Current Medications Hydrocodone Bitart/Acetaminophen ([place] 325-5 Mg) 1 tab PO Q4H PRN PRN Reason: Pain (moderate 4-6) Last Admin: 09/05/17 19:34 Dose: 1 tab Heparin Sodium/Sodium Chloride (Heparin 25,000 Units In 1/2 Ns 500 Ml) 25,000 units in 500 mls @ 23.404 mls/hr IV TITRATE GENEVIEVE; Protocol Stop: 09/08/17 23:00 Last Admin: 09/08/17 02:17 Dose: 10.5 units/kg/hr, 18.203 mls/hr Levofloxacin/Dextrose 750 mg/ (Premix) 150 mls @ 100 mls/hr IV Q24H GENEVIEVE Last Admin: 09/07/17 20:11 Dose: 100 mls/hr Warfarin Sodium (Coumadin Sliding Scale) 1 each PO ASDIRECTED GENEVIEVE Discontinued Medications Heparin Sodium (Porcine) (Heparin Sodium) 5,000 units IVPUSH ONETIME ONE Stop: 09/03/17 22:33 Last Admin: 09/03/17 22:50 Dose: 5,000 units Heparin Sodium (Porcine) (Heparin Sodium) 1,500 units IVPUSH .BOLUS ONE Stop: 09/04/17 08:18 Last Admin: 09/04/17 09:43 Dose: 1,500 units Hydromorphone HCl (Dilaudid) 2 mg IVPUSH ONETIME ONE Stop: 09/03/17 21:17 Last Admin: 09/03/17 21:23 Dose: 2 mg Sodium Chloride (Normal Saline) 1,000 mls @ 125 mls/hr IV ASDIRECTED GENEVIEVE Last Admin: 09/04/17 04:46 Dose: 250 mls/hr Heparin Sodium/Sodium Chloride (Heparin 25,000 Units In 1/2 Ns 500 Ml) 25,000 units in 500 mls @ 20 mls/hr IV TITRATE GENEVIEVE; Protocol Heparin Sodium/Sodium Chloride (Heparin 25,000 Units In 1/2 Ns 500 Ml) 25,000 units in 500 mls @ 20 mls/hr IV TITRATE GENEVIEVE; Protocol Stop: 09/04/17 00:05 Heparin Sodium/Sodium Chloride (Heparin 25,000 Units In 1/2 Ns 500 Ml) 500 mls @ 20 mls/hr IV ASDIRECTED GENEVIEVE Last Admin: 09/04/17 22:04 Dose: 23.4 mls/hr Iopamidol (Isovue-370 (76%)) 100 ml IV . DIRECTED ONE Stop: 09/03/17 21:20 Last Admin: 09/03/17 21:34 Dose: 100 ml Sodium Chloride (Saline Flush) 10 ml FLUSH ASDIRECTED PRN PRN Reason: Keep Vein Open Last Admin: 09/03/17 20:49 Dose: 10 ml Warfarin Sodium (Coumadin) 10 mg PO ONETIME ONE Stop: 09/04/17 08:43 Last Admin: 09/04/17 09:50 Dose: Not Given Warfarin Sodium (Coumadin) 10 mg PO ONETIME ONE Stop: 09/04/17 10:01 Last Admin: 09/04/17 09:50 Dose: 10 mg Warfarin Sodium (Coumadin) 5 mg PO ONETIME ONE Stop: 09/05/17 16:01 Last Admin: 09/05/17 16:09 Dose: 5 mg Warfarin Sodium (Coumadin) 2.5 mg PO 1600 GENEVIEVE Stop: 09/07/17 16:01 Last Admin: 09/07/17 16:26 Dose: 2.5 mg - Exam Quality Assessment: No: Supplemental Oxygen General: Alert, Oriented HEENT: Pupils Equal, Pupils Reactive, EOMI, Mucous Membr. Moist/[place] Neck: Supple Lungs: Clear to Auscultation, Normal Respiratory Effort - Problem List & Annotations (1) Pulmonary embolism SNOMED Code(s): 73332323 Code(s): I26.99 - OTHER PULMONARY EMBOLISM WITHOUT ACUTE COR PULMONALE Status: Acute Current Visit: Yes Qualifiers: Pulmonary embolism type: other Chronicity: acute Acute cor pulmonale presence: without acute cor pulmonale Qualified Code(s): I26.99 - Other pulmonary embolism without acute cor pulmonale Annotation/Comment:: Admit for anticoagulant therapy and medical managment. (2) Pulmonary nodule SNOMED Code(s): 425225106 Code(s): R91.1 - SOLITARY PULMONARY NODULE Status: Acute Current Visit: Yes (3) Tobacco abuse SNOMED Code(s): 329614531 Code(s): Z72.0 - TOBACCO USE Status: Acute Current Visit: Yes (4) Pneumonia SNOMED Code(s): 660210282 Code(s): J18.9 - PNEUMONIA, UNSPECIFIED ORGANISM Status: Acute Current Visit: Yes Qualifiers: Lung location: unspecified part of lung (5) Pleural effusion SNOMED Code(s): 49608506 Code(s): J90 - PLEURAL EFFUSION, NOT ELSEWHERE CLASSIFIED Status: Acute Current Visit: Yes - Problem List Review Problem List Initiated/Reviewed/Updated: Yes - My Orders Last 24 Hours: My Active Orders 09/09/17 05:11 INR,PT,PROTHROMBIN TIME [COAG] DAILY - Plan Plan:: DC home today.
--- NOTE | 2017-09-08 09:28 | DISCH ---
DISCHARGE DATE: 09/08/2017 REASON FOR ADMISSION: 1. Status post right foot surgery. 2. Bilateral pulmonary embolisms. 3. Pulmonary nodules. 4. Pleural effusion. 5. Tobacco abuse. DISCHARGE DIAGNOSES: 1. Pulmonary embolism, bilateral. 2. Community-acquired pneumonia. 3. Tobacco abuse. 4. Pulmonary nodule. BRIEF HISTORY AND HOSPITAL COURSE: This is a 71-year-old male, who was admitted two weeks after foot surgery with bilateral PE. He came in with chest pain that was pleuritic and had shortness of breath. A CT confirmed bilateral embolisms. There were some multiple nodules as well that were noted. He was started on heparin drip, which he did for 5 days, and Coumadin was also started. On the second day, a chest x-ray revealed bilateral effusions and infiltrates. He had a fever. He was started on Levaquin. He did pretty good and INR was therapeutic by the second day. We overlapped that for 2 more days, and he was discharged home on September 08, 2017, on Coumadin sliding scale, Levaquin 750 mg p.o. daily to complete 10 days, and follow up in 24 hours with Malathi Brielle, so he can be connected with the [facility]. Tobacco abuse was reviewed with the patient. The pulmonary nodules, that were noted, were also reviewed. A CT is recommended at three month's interval to check the resolution or progression. His discharge INR was 3.4. Please note that I spent more than 35 minutes in the discharge of the patient. /[id number] ZAINAB/MARICEL
[2017-09-08 13:33] VITALS: BP 120/64
== END 2017-09-08 11:40 | disposition home or self-care (01) | DRG 175 ==
LOC: FB.ED 20:06 → FB.ICU 22:23 → FB.MS 09-07 08:27
PROVIDERS: ADMIT Family Medicine; ATTEND Family Medicine
DX: I26.99 Other pulmonary embolism without acute cor pulmonale (principal); J18.9 Pneumonia, unspecified organism; J90 Pleural effusion, not elsewhere classified; F17.210 Nicotine dependence, cigarettes, uncomplicated; R07.89 Other chest pain; Z86.711 Personal history of pulmonary embolism; R06.02 Shortness of breath; Z86.718 Personal history of other venous thrombosis and embolism; Z98.890 Other specified postprocedural states; R91.1 Solitary pulmonary nodule; M19.90 Unspecified osteoarthritis, unspecified site; Z96.659 Presence of unspecified artificial knee joint; Z79.82 Long term (current) use of aspirin; Z79.01 Long term (current) use of anticoagulants
CPT/HCPCS: 36415; 71275; 80053; 84484; 85025; 85379; 93005; 96374; 99285; J1170; J7030; J7050 ×2; Q9967; 71046; 83615; 83880; 85610; 85730; 94150; A9270-GY; J1644; J1956

== ENCOUNTER 2019-09-21 11:34 | Emergency (ER) | payer MEDICARE, BC ==
[2019-09-21 12:02] VITALS: BP 127/107; PULSE 45
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
[2019-09-21] MEDS ORDERED: Atropine 0.1 MG/ML 10 ML Syringe IVPUSH ONE ×2 (14:13→14:26)
[2019-09-21] MEDS: Sodium Chloride 0.9% 10 ML Syringe FLUSH PRN ×2 (14:15→15:24)
[2019-09-21] MEDS ORDERED: Aspirin 81 MG Tab.Chew PO ONE (14:24)
[2019-09-21] MEDS ORDERED: Furosemide 40 MG/4 ML VIAL IVPUSH ONE (14:48)
--- NOTE | 2019-09-21 16:14 | CR ---
INDICATION: Chest pain. CHEST, ONE VIEW: AP upright view of the chest was obtained 09/21/19 and compared with 09/05/17 and 01/10/11. The heart is enlarged with post median sternotomy change now noted. Overlying EKG leads are noted. Calcifications are noted in the arch of the aorta. There appears to be some patchy infiltration in the lower lung wayne bilaterally with blunting of the left costophrenic angle. There is also thickening of the minor fissure on the right, which may represent minimal pleural fluid - pleuritis on the right. Findings may be on the basis of bibasilar pneumonia, possibly with pleuritis on the left. Findings may also represent interstitial lung edema in a patient with mild or early CHF with the slightly prominent upper lung field pulmonary vasculature noted. IMPRESSION: Interval post median sternotomy change with enlargement of the heart and calcified arch of the aorta. Early or mild CHF with interstitial lung edema may be present, although superimposed bibasilar pneumonia and pleuritis cannot be excluded. MTDD
== END 2019-09-21 16:03 | disposition other institution (70) ==
LOC: FB.ED 11:34
DX: R00.1 Bradycardia, unspecified (principal); Z20.828 Contact with and (suspected) exposure to other viral communicable diseases; M19.90 Unspecified osteoarthritis, unspecified site; R79.89 Other specified abnormal findings of blood chemistry; Z79.82 Long term (current) use of aspirin; Z79.899 Other long term (current) drug therapy
CPT/HCPCS: 36415; 71045; 80053; 83880; 84443; 84484; 85027; 93005; 96374; 96375; 99285; A9270; J0461; J1940; U0002